=== PATIENT | female | born 1940 | race Caucasian/White ===

== ENCOUNTER 2017-04-17 00:46 | Emergency (ER) | payer MEDICARE ==
[2017-04-17] MEDS ORDERED: ASPIRIN (CHEWABLE) 81 MG TAB PO ONE (01:02)
--- NOTE | 2017-04-17 01:28 | RAD ---
Clinical History : pain , MAIN Exam : Portable AP view of the chest 04/17/2017 1:00 AM CDT Comparisons : none Findings : The lungs are clear without focal consolidation or pleural effusion. The heart is normal in size. The mediastinal contours are normal in appearance. The thoracic spine is age appropriate. The shoulders are unremarkable. Limited evaluation of the upper abdomen demonstrates no gross abnormalities. Impression: No acute cardiopulmonary disease Electronically signed by: Jose Angel Isaac MD 04/17/2017 1:27 AM CDT
[2017-04-17 01:52] VITALS: TEMP 96.9
--- NOTE | 2017-04-17 02:00 | ED.PDOC ---
History of Present Illness - General Chief Complaint: Chest Pain/CA Stated Complaint: chest pain Time Seen by Provider: 04/17/17 00:58 Source: patient Exam Limitations: no limitations - History of Present Illness Initial Comments: Liliana Navarro 76 y/o female stated she just recently moved back here in town coming from [place], [place] and was unpacking her stuff lifting boxes up and down stairs had onset of sharp/pressure intermittent sub sternal feelings on her chest this afternoon tried to rest but keeps coming back and tonight pain not getting better decided to get check at the [facility] er.Stated that she had a heart attack before in the past as mentioned by her md which already retired and no cardiology evaluation was made then while living in [place] went to er with chest pain symptoms was told that she had old mi but waqs not 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 Stated her chest pain gone on arrival at er. Timing/Duration: 7-24 hours Location: substernal Activities at Onset: activity Prior Chest Pain/Cardiac Workup: no prior cardiac workup Improving Factors: rest Worsening Factors: other - exertion Nitro Today/Relief: no nitro taken today Aspirin Treatment Today: 81 mg x 4, provided at home - occasionally, provided by ED Associated Symptoms: denies symptoms Allergies/Adverse Reactions: Allergies UNOBTAINABLE Allergy (Verified 04/17/17 01:09) Home Medications: Ambulatory Orders Amlodipine Besylate 10 mg PO DAILY #30 tab 04/17/17 Aspirin [David Low Dose] 81 mg PO DAILY PRN 04/17/17 Nitroglycerin 0.4 mg Tab [Nitrostat] 0.4 mg SL .Q5M PRN #1 bttl 04/17/17 diphenhydrAMINE HCL [Benadryl] 25 mg PO BEDTIME PRN 04/17/17 Review of Systems - Review of Systems Constitutional: States: no symptoms reported EENTM: States: no symptoms reported Respiratory: States: no symptoms reported Cardiology: States: see HPI Gastrointestinal/Abdominal: States: no symptoms reported Genitourinary: States: no symptoms reported Musculoskeletal: States: no symptoms reported Past Medical History (General) - Patient Medical History Hx Stroke: Yes Hx Cardiac Disorders: Yes Hx Diabetes: No Hx Cancer: Yes - melanoma to back Surgical History: appendectomy, tonsillectomy, other - hysterectomy ,excision of melanoma - Vaccination History Hx Influenza Vaccination: Yes - Activities of Daily Living Patient Lives Alone: Yes - lives in apartment but has neighbors Grooming Ability: Independent Eating (Feeding) Ability: Independent Toileting Ability: Independent - Female History Patient is a Female of Child Bearing Age (10 -59 yrs old): No Family Medical History - Family History Father Family History: Unknown Hx Cardiac Disease: Yes - parents in their 70's Physical Exam - Physical Exam General Appearance: Alert, No apparent distress Eyes, Ears, Nose, Throat Exam: PERRL/EOMI, normal ENT inspection, pharynx normal Neck: non-tender, full range of motion, supple Respiratory: lungs clear, normal breath sounds, no respiratory distress Cardiovascular/Chest: regular rate, rhythm, no murmur Peripheral Pulses: radial,right: 2+, radial,left: 2+ Gastrointestinal/Abdominal: normal bowel sounds, non tender, soft, no organomegaly Extremity: non-tender, normal inspection, no pedal edema, no calf tenderness Neurologic: no motor/sensory deficits, alert, oriented x 3 Skin Exam: normal color, warm/dry Lymphatic: no adenopathy Progress - Progress Progress: 04/17/17 02:04 Last Vital Signs Temp 96.9 F L 04/17/17 01:17 Pulse 69 04/17/17 01:17 Resp 20 04/17/17 01:17 BP 181/95 04/17/17 01:17 Pulse Ox 100 04/17/17 01:17 04/17/17 03:38 Chest pain free on discharge;Discuss lab result ,ekg findings stating no myocardial injury but emphasize importance of follow up with her primary md - Results/Orders Results/Orders: Laboratory Tests 04/17/17 04/17/17 04/17/17 01:00 01:00 01:00 WBC 7.3 RBC 4.29 Hgb 12.6 Hct 38.0 MCV 88.7 MCH 29.4 MCHC 33.1 RDW 14.6 H Plt Count 195 MPV 9.1 Absolute Neuts (auto) 3.90 Absolute Lymphs (auto) 2.80 Absolute Monos (auto) 0.50 Absolute Eos (auto) 0.10 Absolute Basos (auto) 0.00 Neutrophils % 53.4 Lymphocytes % 37.9 Monocytes % 6.2 Eosinophils % 1.8 Basophils % 0.7 PT 11.2 INR 0.990 PTT (SP) 32.8 D-Dimer, Quantitative 275 H* Sodium 138 Potassium 4.0 Chloride 106 Carbon Dioxide 26 Anion Gap 10.0 L BUN 11 Creatinine 0.86 BUN/Creatinine Ratio 12.8 Random Glucose 96 Serum Osmolality 274.9 L Calcium 9.3 Magnesium 2.0 Total Bilirubin < 0.2 L Direct Bilirubin < 0.1 Indirect Bilirubin 0.1 L AST 19 ALT 11 Alkaline Phosphatase 53 Creatine Kinase 63 CK-MB (CK-2) 1.1 CK-MB (CK-2) % Not Reportable Troponin I < 0.02 B-Natriuretic Peptide 26.5 Serum Total Protein 6.6 Albumin 3.8 Laboratory Last Values WBC 7.3 K/mm3 (4.8-10.8) 04/17/17 01:00 RBC 4.29 M/mm3 (4.20-5.40) 04/17/17 01:00 Hgb 12.6 gm/dL (12.0-16.0) 04/17/17 01:00 Hct 38.0 % (36.0-47.0) 04/17/17 01:00 MCV 88.7 fl (81.0-99.0) 04/17/17 01:00 MCH 29.4 pg (27.0-31.0) 04/17/17 01:00 MCHC 33.1 g/dL (33.0-37.0) 04/17/17 01:00 RDW 14.6 % (11.5-14.5) H 04/17/17 01:00 Plt Count 195 K/mm3 (130-400) 04/17/17 01:00 MPV 9.1 fl (7.40-10.4) 04/17/17 01:00 Absolute Neuts (auto) 3.90 K/uL (1.8-6.8) 04/17/17 01:00 Absolute Lymphs (auto) 2.80 K/uL (1.0-3.4) 04/17/17 01:00 Absolute Monos (auto) 0.50 K/uL (0.2-0.8) 04/17/17 01:00 Absolute Eos (auto) 0.10 K/uL (0.0-0.4) 04/17/17 01:00 Absolute Basos (auto) 0.00 K/uL (0.0-0.1) 04/17/17 01:00 Neutrophils % 53.4 % (42.0-78.0) 04/17/17 01:00 Lymphocytes % 37.9 % (20.0-50.0) 04/17/17 01:00 Monocytes % 6.2 % (2.0-9.0) 04/17/17 01:00 Eosinophils % 1.8 % (1.0-5.0) 04/17/17 01:00 Basophils % 0.7 % (0.0-2.0) 04/17/17 01:00 PT 11.2 SECONDS (9.4-12.5) 04/17/17 01:00 INR 0.990 04/17/17 01:00 PTT (SP) 32.8 SECONDS (25.1-36.5) 04/17/17 01:00 D-Dimer, Quantitative 275 ng/mL (0-230) H* 04/17/17 01:00 Sodium 138 mmol/L (135-145) 04/17/17 01:00 Potassium 4.0 mmol/L (3.6-5.0) 04/17/17 01:00 Chloride 106 mmol/L (101-111) 04/17/17 01:00 Carbon Dioxide 26 mmol/L (21-31) 04/17/17 01:00 Anion Gap 10.0 (12-18) L 04/17/17 01:00 BUN 11 mg/dL (7-18) 04/17/17 01:00 Creatinine 0.86 mg/dL (0.6-1.3) 04/17/17 01:00 BUN/Creatinine Ratio 12.8 (10-20) 04/17/17 01:00 Random Glucose 96 mg/dL (70-105) 04/17/17 01:00 Serum Osmolality 274.9 mOsm/L (275-295) L 04/17/17 01:00 Calcium 9.3 mg/dL (8.4-10.2) 04/17/17 01:00 Magnesium 2.0 mg/dL (1.8-2.5) 04/17/17 01:00 Total Bilirubin < 0.2 mg/dL (0.2-1.0) L 04/17/17 01:00 Direct Bilirubin < 0.1 mg/dL (0-0.2) 04/17/17 01:00 Indirect Bilirubin 0.1 mg/dL (0.2-0.8) L 04/17/17 01:00 AST 19 IU/L (10-42) 04/17/17 01:00 ALT 11 IU/L (10-60) 04/17/17 01:00 Alkaline Phosphatase 53 IU/L (42-121) 04/17/17 01:00 Creatine Kinase 63 IU/L (26-140) 04/17/17 01:00 CK-MB (CK-2) 1.1 ng/mL (0.0-4.4) 04/17/17 01:00 CK-MB (CK-2) % Not Reportable 04/17/17 01:00 Troponin I < 0.02 ng/mL (0.01-0.05) 04/17/17 02:25 B-Natriuretic Peptide 26.5 pg/ml (0-100) 04/17/17 01:00 Serum Total Protein 6.6 gm/dL (6.4-8.2) 04/17/17 01:00 Albumin 3.8 g/dl (3.2-5.5) 04/17/17 01:00 # 2 Troponin-normal - EKG/XRAY/CT EKG: Sinus, nonspecific ST T wave Chg Comments: heart rate 69,PAC's XRAY: chest - no acute abnormality - Additional EKG/XRAY/Consults EKG #2: Sinus - heart rate-63 Departure - Departure Clinical Impression: Chest pain Qualifiers: Chest pain type: other chest pain Qualified Code(s): R07.89 - Other chest pain Hypertension Qualifiers: Hypertension type: essential hypertension Qualified Code(s): I10 - Essential ( primary) hypertension Time of Disposition: 03:23 Disposition: Discharge to Home or Self Care Condition: Fair Departure Forms: ED Discharge - Pt. Copy, Patient Portal Self Enrollment Instructions: DI for Chest Pain Referrals: Armando Hidalgo MD [Primary Care Provider] - 1-2 Weeks Prescriptions: Amlodipine Besylate 10 mg PO DAILY #30 tab Nitroglycerin 0.4 mg Tab [Nitrostat] 0.4 mg SL .Q5M PRN #1 bttl PRN Reason: Chest Pain Home Medications: Ambulatory Orders Amlodipine Besylate 10 mg PO DAILY #30 tab 04/17/17 Aspirin [David Low Dose] 81 mg PO DAILY PRN 04/17/17 Nitroglycerin 0.4 mg Tab [Nitrostat] 0.4 mg SL .Q5M PRN #1 bttl 04/17/17 diphenhydrAMINE HCL [Benadryl] 25 mg PO BEDTIME PRN 04/17/17 Additional Instructions: Continue with Baby aspirin-81 mg. daily;NEED to call up Dr. Hidalgo office in AM 04/17/2017-patient to call;RETURN TO EMERGENCY ROOM NEEDED IF SYMPTOMS RECURS
[2017-04-17] MEDS ORDERED: amLODIPine BESYLATE 5 MG TAB PO ONE (02:23)
[2017-04-17 03:33] VITALS: O2SAT 98
[2017-04-17 03:50] VITALS: BP 139/62
== END 2017-04-17 03:50 | disposition home or self-care (01) ==
LOC: ER 00:46
DX: R07.89 Other chest pain (principal); I10 Essential (primary) hypertension; Z86.73 Personal history of transient ischemic attack (TIA), and cerebral infarction without residual deficits; Z85.820 Personal history of malignant melanoma of skin; Z79.82 Long term (current) use of aspirin; Z79.899 Other long term (current) drug therapy

== ENCOUNTER → 2017-09-13 | Outpatient (CLI) | payer MEDICARE ==
--- NOTE | 2017-09-18 10:51 | MAM ---
EXAM DESCRIPTION: 3D Screening BILATERAL : Digital Mammography. CLINICAL HISTORY: 76 years Female SCREENING . No complaints. No family history of breast cancer. Postmenopausal. Taking HRT 5 or more years ago. Prior cyst aspiration and biopsy of the right breast. COMPARISON: 2-D digital screening bilateral studies 10/14/2014. Report from prior examination also reviewed. TECHNIQUE: Bilateral CC and MLO projection full-field images, 3-D tomosynthesis digital mammographic technique. Also bilateral synthesized CC/ MLO full-field images. CAD not utilized. FINDINGS: The breast parenchymal density pattern is: Scattered areas of fibroglandular density. No skin thickening or nipple retraction bilateral vascular calcifications. Right axillary lymph nodes. Bilateral solitary microcalcifications. No focal, stellate mass or density, focal asymmetry , and no suspicious microcalcifications bilaterally. Stable mammograms compared to prior study, taking into account differences in mammographic technique IMPRESSION: BI-RADS CATEGORY: 2 - BENIGN FINDINGS. FOLLOW UP: Routine digital bilateral screening, one year interval from September 2017. Written communication explaining the IMPRESSION and follow-up, will be mailed to the patient and referring health care provider. According to the [employer], yearly mammograms are recommended starting at age 40 and continuing as long as a woman is in good health. Any breast change noted on a breast self-exam should be reported promptly to the patient's healthcare provider. Breast MRI is recommended for women with an approximately 20-25% or greater lifetime risk of breast cancer, including women with a strong family history of breast or ovarian cancer and women who have been treated for Hodgkin's disease. A negative mammographic report should not delay tissue diagnosis in patients with significant clinical history or physical findings. Extremely dense breast tissue limits the sensitivity of digital mammography. Electronically signed by: Mauri Whitley MD 09/18/2017 10:50 AM CDT
== END ==
LOC: MAMMO 13:44
PROVIDERS: ATTEND Nurse Practitioner Family
DX: Z12.31 Encounter for screening mammogram for malignant neoplasm of breast (principal)

== ENCOUNTER → 2018-01-22 | Outpatient (CLI) | payer MEDICARE | LOC: YCFC.O 10:47 | DX: E03.9 Hypothyroidism, unspecified (principal) ==

== ENCOUNTER 2018-02-27 07:00 | Day surgery (SDC) | payer MEDICARE ==
--- NOTE | 2018-02-22 10:54 | HP ---
CHIEF COMPLAINT: Left thumb pain. HISTORY OF PRESENT ILLNESS: Liliana is a 77-year-old female with a history of a fall that occurred about 6 days ago. She had the acute onset of pain in the thumb. She denies any radiation of pain, neurologic symptoms or other symptoms associated with this. She denies any other injuries associated with this. She was splinted by Rodolfo Hickey. PAST SURGICAL HISTORY: 1. Appendectomy. 2. Tonsillectomy. 3. Hysterectomy. MEDICATIONS: 1. Aspirin. ALLERGIES: NO KNOWN DRUG ALLERGIES. CODE STATUS: DNR. IMMUNIZATIONS: Up to date. FAMILY HISTORY: None pertinent to today's complaint. SOCIAL HISTORY: The patient does not drink, smoke or use any illicit drugs. REVIEW OF SYSTEMS: Negative except as indicated in the History of Present Illness. PHYSICAL EXAMINATION: VITAL SIGNS: Blood pressure 153/85. Pulse 77. Height 5'. Weight 114 pounds. MENTAL STATUS: The patient is awake, alert, and is able to give a good history and participate in the physical. The patient is oriented to person, place and time. SKIN: Normal tone and turgor. MUSCULOSKELETAL: She has swelling and pain at the proximal phalanx of the thumb. She has slight deformity with volar apex angulation. She does have intact sensation and the extremity is warm and well perfused. With stabilization of the phalanx, she does have some active motion at the IP joint. IMAGING: X-rays show an angulated and oblique fracture. ASSESSMENT: 1. Displaced fracture of the proximal phalanx of the thumb. PLAN: I think given the oblique nature of this fracture and also the displacement, it would probably be prudent to go ahead and at least percutaneously pin this. I do not think we could reasonably expect to hold this in a reduced position. I have talked to her about both operative and nonoperative options and she has requested operative intervention. We have discussed the risks, benefits, and alternatives to that and the patient has given informed consent. #[id number] [facility]
[~2018-02-27 07:00] MED LIST: LACTATED RINGERS 1,000 ML ONE; SODIUM CHL 0.9% 50ML MIN-BAG+ 50 ML IVPB ONE; ceFAZolin SODIUM 1 GM VIAL ONE
[2018-02-27] MEDS: ceFAZolin SODIUM 1 GM VIAL ONE ×3 (07:20→09:05)
[2018-02-27] MEDS ORDERED: fentaNYL CITRATE INJ 50 MCG/ML AMP ONE (07:21)
[2018-02-27] MEDS ORDERED: BUPIVACAINE 0.25% INJ 30 ML VIAL INJ ONE (07:36)
[2018-02-27] MEDS ORDERED: ACETAMINOPHEN IV 1000MG 100 ML ONE (07:37)
[2018-02-27] MEDS: VANCOMYCIN HCL INJ 1,000 MG VIAL IVPB ONE ×2 (08:09→09:05)
[2018-02-27] MEDS ORDERED: DEXAMETHASONE INJ 10 MG/ML VIAL IV ONE (10:00)
[2018-02-27] MEDS ORDERED: LIDOCAINE 1% 10 ML VIAL INJ ONE (10:00)
[2018-02-27] MEDS ORDERED: METOCLOPRAMIDE HCL INJ 10 MG/2 ML VIAL IV ONE (10:00)
[2018-02-27] MEDS ORDERED: GLYCOPYRROLATE 0.2 MG/ML VIAL IV ONE (10:00)
[2018-02-27] MEDS ORDERED: raNITIdine HCL INJ 25 MG/ML VIAL IV ONE (10:00)
[2018-02-27] MEDS ORDERED: PROPOFOL 200 MG/20 ML VIAL IV ONE (10:00)
[2018-02-27] MEDS ORDERED: HYDROcodone 5MG/APAP 325MG 1 EA TAB ONE ×2 (10:06→10:40)
[2018-02-27 10:53] VITALS: O2SAT 98
[2018-02-27 11:29] VITALS: BP 144/67; TEMP 96.3
--- NOTE | 2018-02-28 15:49 | OP ---
DATE OF PROCEDURE: 02/27/18 PREOPERATIVE DIAGNOSIS: 1. Unstable first proximal phalanx fracture. POSTOPERATIVE DIAGNOSIS: 1. Unstable first proximal phalanx fracture. PROCEDURE: 1. Open reduction and internal fixation. SURGEON: Dennis Huerta MD. LINING FOLDER: Mauri Washington CST, SA-C. ANESTHESIA: General anesthesia. COMPLICATIONS: None. FINDINGS: Displaced fracture of the first phalanx of the thumb. INDICATION: Ms. Navarro has a history of a fall with the acute onset of of pain in the thumb. She had the acute onset of deformity as well. Following x-rays, she was splinted and sent to me. She and I discussed the findings as well as the risks, benefits and alternatives to operative therapy. Informed consent was obtained for both percutaneous pinning as well as open reduction and internal fixation. PROCEDURE: The patient was brought to the Operating Room and placed in the supine position. General anesthesia was induced and the patient's arm was sterilely prepped and draped. Following prepping and draping, an incision was made over the dorsum of the digit. The extensor tendon was retracted and the fracture was exposed. Following exposure of the fracture, the fracture was reduced and an 8-hole rectangular plate was applied to the dorsum. The screw lengths were checked under fluoroscopic imaging. The fracture was stable and the wound was very thoroughly irrigated. Following irrigation, the tendon was reapproximated and the wound was closed. Sterile dressings were placed. A splint was placed. The patient was awoken from anesthesia and taken to Recovery. POSTOPERATIVE PLAN: She will followup with us in two days. #[id number] [facility]
== END 2018-02-27 11:35 | disposition home or self-care (01) ==
LOC: AMB 07:00
PROVIDERS: ATTEND Orthopaedic Surgery
DX: S62.512A Displaced fracture of proximal phalanx of left thumb, initial encounter for closed fracture (principal); I10 Essential (primary) hypertension; I25.2 Old myocardial infarction; W19.XXXA Unspecified fall, initial encounter; Z79.82 Long term (current) use of aspirin
CPT/HCPCS: 01830; 26735; 76000; 87070; C1713; J0690; J1100; J2765; J2780; J3010; J3370; J3490; J7050; J7120

== ENCOUNTER → 2018-03-08 | Outpatient (CLI) | payer MEDICARE ==
--- NOTE | 2018-03-08 09:44 | RAD ---
EXAM DESCRIPTION: Fingers,Left CLINICAL HISTORY: 77 years Female, FRACTURE OF PROXIMAL PHALANX FINGER COMPARISON: February 19, 2018 FINDINGS: Three views of the left thumb show malleable plate and screw fixation device traversing a non or minimally displaced proximal phalangeal fracture without apparent hardware complication. No significant callus formation is identified. No intra-articular extension is seen. No new fracture, malalignment or concerning radiopaque foreign body. IMPRESSION: Postoperative changes in the left thumb without apparent hardware consultation. Non-minimally displaced proximal phalangeal fracture left thumb without significant callus formation. Electronically signed by: Son Gutierrez MD 03/08/2018 9:43 AM CDT
--- NOTE | 2018-03-08 09:45 | RAD ---
EXAM DESCRIPTION: Hand,Left 3 Views CLINICAL HISTORY: 77 years Female, FRACTURE OF PROXIMAL PHALANX FINGER COMPARISON: February 19, 2018 FINDINGS: Postoperative changes in the left thumb are new from the prior exam, please see separate report from today's left thumb series for more detailed discussion. No new fracture or malalignment. Mild joint space narrowing at the first CMC joint and also several interphalangeal joints. No suspicious radiopaque foreign body or soft tissue gas. IMPRESSION: Postoperative changes in the left thumb described in detail in a separate report from today's left thumb series. Polyarticular degenerative changes elsewhere in the left hand, otherwise unremarkable exam. Electronically signed by: Son Gutierrez MD 03/08/2018 9:44 AM CDT
== END ==
LOC: RAD 08:56
PROVIDERS: ATTEND Orthopaedic Surgery
DX: S62.512D Displaced fracture of proximal phalanx of left thumb, subsequent encounter for fracture with routine healing (principal)

== ENCOUNTER → 2018-03-20 | Outpatient (CLI) | payer MEDICARE | LOC: YCFC.O 10:21 | PROVIDERS: ATTEND Family Medicine | DX: F03.90 Unspecified dementia, unspecified severity, without behavioral disturbance, psychotic disturbance, mood disturbance, and anxiety (principal); M32.9 Systemic lupus erythematosus, unspecified; I10 Essential (primary) hypertension ==

== ENCOUNTER → 2018-03-27 | Outpatient (CLI) | payer MEDICARE ==
--- NOTE | 2018-03-27 12:54 | MRI ---
EXAM DESCRIPTION: Brain w/oContrast CLINICAL HISTORY: DEMENTIA COMPARISON: None available TECHNIQUE: Non contrast MRI of the brain is performed according to our usual protocol including multiplanar multi sequence technique. FINDINGS: Sagittal T1 images show intact corpus callosum. Normal pituitary gland with normal T1 appearance of the tania and medulla and upper cervical cord. Normal signal intensity within the clivus and calvarium. Axial T2 fat sat images reveal preservation of intracranial vascular flow voids. Normal prajapati matter T2 signal intensity. Numerous white matter hyperintensities. Normal ventricles with normal gyral and sulcal fold pattern for age. The globes appear intact and symmetrical. No abnormal fluid signal in the paranasal sinuses, tympanic cavities or mastoid air cells. No disproportionate atrophy of the temporal lobes or mesial temporal atrophy. Axial flair images show multifocal abnormal increased signal intensity in the subcortical and central white matter of both cerebral hemispheres. Findings are consistent with chronic microvascular ischemic changes related to aging, diabetes or hypertension. Diffusion weighted images are negative for focal intense increased signal intensity in the brain parenchyma to suggest restricted diffusion. ADC mapping is negative. Axial T1 images show normal prajapati-white matter differentiation. No high signal intensity hemorrhagic lesion of the brain parenchyma. No subdural hematoma. Axial susceptibility weighted images are negative for focal signal loss to suggest abnormal brain parenchymal calcification or hemosiderin deposition. IMPRESSION: Extensive chronic microvascular ischemic changes related to aging, diabetes or hypertension. Electronically signed by: Yefri Reyes MD 03/27/2018 12:52 PM CDT
== END ==
LOC: MRI 10:03
PROVIDERS: ATTEND Family Medicine
DX: F03.90 Unspecified dementia, unspecified severity, without behavioral disturbance, psychotic disturbance, mood disturbance, and anxiety (principal)

== ENCOUNTER → 2018-04-06 | Outpatient (CLI) | payer MEDICARE ==
--- NOTE | 2018-04-06 16:17 | RAD ---
EXAM DESCRIPTION: Fingers,Left CLINICAL HISTORY: 77 years Female, CLOSED FRACTURE THUMB PROXIMAL PHALANX LEFT COMPARISON: March 08, 2018 FINDINGS: Again seen are postoperative changes involving the proximal phalanx of the left thumb without apparent hardware complication. There is a nonunited, nondisplaced and slightly comminuted fracture also involving the proximal phalanx of the left thumb, not significantly changed in appearance from the patient's previous exam. No callus formation is identified. No new fracture. IMPRESSION: Postoperative changes in the left thumb without apparent hardware or other surgical complication. Nondisplaced, slightly comminuted and nonunited fracture proximal phalanx left thumb, not significantly changed from March 08, 2018. Electronically signed by: Son Gutierrez MD 04/06/2018 4:16 PM CDT
== END ==
LOC: RAD 08:23
PROVIDERS: ATTEND Orthopaedic Surgery
DX: S62.512D Displaced fracture of proximal phalanx of left thumb, subsequent encounter for fracture with routine healing (principal); Z98.890 Other specified postprocedural states

== ENCOUNTER → 2018-10-23 | Outpatient (CLI) | payer MEDICARE | LOC: YCFC.O 07:08 | PROVIDERS: ATTEND Family Medicine | DX: Z00.00 Encounter for general adult medical examination without abnormal findings (principal); I10 Essential (primary) hypertension ==

== ENCOUNTER → 2019-02-13 | Outpatient (CLI) | payer MEDICARE ==
--- NOTE | 2019-02-13 14:20 | RAD ---
EXAM DESCRIPTION: Chest,2 Views: CR/DR CLINICAL HISTORY: 78 years Female Chest pain COMPARISON: Portable chest 1 view chest x-ray 04/17/2017. TECHNIQUE: Two views. PA and Lateral. FINDINGS: Lungs: Mild hyperinflation. Pleural spaces: No effusion or pneumothorax bilaterally. Heart: Heart size upper normal. Pulmonary Vascularity: Not increased. Mediastinum: Not widened. Aorta: Unremarkable. Bony Thorax/Spine: No acute bony thoracic abnormalities. IMPRESSION: Mild hyperinflation of the lungs in a senescent chest, with no acute infiltrate. Stable since April 2017. Electronically signed by: Mauri Whitley MD 02/13/2019 2:18 PM CDT
== END ==
LOC: LAB.O 09:16
PROVIDERS: ATTEND Family Medicine
DX: R07.9 Chest pain, unspecified (principal); R06.09 Other forms of dyspnea; I10 Essential (primary) hypertension; R91.8 Other nonspecific abnormal finding of lung field

== ENCOUNTER → 2019-02-18 | Outpatient (CLI) | payer MEDICARE | LOC: NM 08:30 | PROVIDERS: ATTEND Family Medicine | DX: R07.9 Chest pain, unspecified (principal) ==

== ENCOUNTER 2019-06-17 16:26 | Emergency (ER) | payer MEDICARE ==
[2019-06-17] MEDS ORDERED: OXYMETAZOLINE NASAL SPRAY 15 ML BTTL BNAS PRN (16:41)
--- NOTE | 2019-06-17 16:47 | ED.PDOC ---
History of Present Illness - General Chief Complaint: ENT Problem Stated Complaint: nose bleed Time Seen by Provider: 06/17/19 16:41 Source: patient Exam Limitations: no limitations - History of Present Illness Initial Comments: 78 yo F who presents for L sided nose bleed onset [employer] after scratching her nose. Hx of seasonal allergies with chronic sneezing and runny nose. Denies f/c, cough, CP, SOB, CANDELARIA, lightheadedness, syncope. No other complaints voiced at this time. Noted to be hypertensive, pt is compliant with three BP medications at home, states it is currently elevated because of all the excitement. Pt is not on anticoagulation. Allergies/Adverse Reactions: Allergies UNOBTAINABLE Allergy (Verified 04/17/17 01:09) Home Medications: Ambulatory Orders Nitroglycerin 0.4 mg Tab [Nitrostat] 0.4 mg SL .Q5M PRN #1 bttl 04/17/17 Donepezil Hydrochloride [Donepezil HCl] 10 mg PO DAILY 06/17/19 Losartan Potassium 100 mg PO DAILY 06/17/19 Memantine HCl 10 mg PO BID 06/17/19 Review of Systems - Review of Systems Constitutional: Denies: chills, fever EENTM: States: other - +sneezing, rhinorrhea Respiratory: Denies: cough Cardiology: Denies: chest pain, syncope Gastrointestinal/Abdominal: Denies: nausea, vomiting Musculoskeletal: Denies: back pain, neck pain Skin: Denies: change in color Neurological: Denies: headache, numbness, weakness Past Medical History (General) - Patient Medical History Hx Stroke: Yes Hx Cardiac Disorders: Yes Hx Congestive Heart Failure: No Hx Hypertension: Yes Hx Diabetes: No Hx Cancer: Yes - hx of uterine ca Hx MRSA: No Surgical History: appendectomy, Hysterectomy - Vaccination History Hx Tetanus, Diphtheria Vaccination: No Hx Influenza Vaccination: Yes Hx Pneumococcal Vaccination: Yes Immunizations Up to Date: No - Social History Hx Alcohol Use: No Hx Substance Use: No Hx Depression: No Family Medical History - Family History Father Family History: Unknown Hx Cardiac Disease: Yes - parents in their 70's Physical Exam - Physical Exam General Appearance: Alert, Comfortable, No apparent distress, Well Developed, Well Groomed, Well Nourished Eye Exam: bilateral normal Ear Exam: bilateral ear: auricle normal Nasal Exam: dried blood - L nare Throat Exam: normal mouth inspection, pharynx normal, other - Clear oropharynx Neck: full range of motion, supple Cardiovascular/Respiratory: regular rate, rhythm, no M/R/G, normal peripheral pulses Abdominal Exam: non-tender, other - soft Neurologic: no motor/sensory deficits, alert, normal mood/affect Skin Exam: normal color, warm/dry, other - no pallor Progress - Progress Progress: I have explained and reviewed all results with the pt. I explained that emergent conditions may arise and to return to the ER for new, worsening, or any persistent conditions. Advised on used of Afrin needed over the next two days, use of nasal clamp and reasons to return if nosebleed continues, understands to not blow her nose. I've explained the importance of f/u for recheck. All questions and concerns addressed at this time. Pt understands and agrees with plan. Pt well appearing, NAD, is stable for discharge. Nicole Taveras MD Emergency Medicine Physician Billing Number [id number] - Results/Orders Results/Orders: Vital Signs - 24 hr 06/17/19 06/17/19 06/17/19 16:37 16:50 17:32 Temperature 97.6 F 97.6 F Pulse Rate [ 78 85 76 monitor] Respiratory 18 18 18 Rate Blood Pressure 202/90 149/89 155/84 [la] O2 Sat by Pulse 98 98 98 Oximetry Departure - Departure Clinical Impression: Anterior epistaxis Time of Disposition: 17:24 Disposition: Discharge to Home or Self Care Health Concerns: condition: stable Departure Forms: ED Discharge - Pt. Copy, Patient Portal Self Enrollment Instructions: Nosebleeds (DC) Referrals: Simon Royal MD [Primary Care Provider] - 1 Week Home Medications: Ambulatory Orders Nitroglycerin 0.4 mg Tab [Nitrostat] 0.4 mg SL .Q5M PRN #1 bttl 04/17/17 Donepezil Hydrochloride [Donepezil HCl] 10 mg PO DAILY 06/17/19 Losartan Potassium 100 mg PO DAILY 06/17/19 Memantine HCl 10 mg PO BID 06/17/19 Additional Instructions: Follow up: [facility] As needed, if symptoms worsen
[2019-06-17 16:48] VITALS: TEMP 97.6; O2SAT 98
[2019-06-17] MEDS: OXYMETAZOLINE NASAL SPRAY 15 ML BTTL BNAS ONE (16:51)
[2019-06-17 17:33] VITALS: BP 155/84
== END 2019-06-17 17:32 | disposition home or self-care (01) ==
LOC: ER 16:26
DX: R04.0 Epistaxis (principal); J30.2 Other seasonal allergic rhinitis; I51.9 Heart disease, unspecified; I10 Essential (primary) hypertension; Z86.73 Personal history of transient ischemic attack (TIA), and cerebral infarction without residual deficits; Z85.42 Personal history of malignant neoplasm of other parts of uterus; Z79.899 Other long term (current) drug therapy